=== PATIENT | female | born 1945 | race Caucasian/White ===

== ENCOUNTER → 2017-02-28 | Outpatient (CLI) | payer MEDICARE, OTHER ==
[~2017-02-28] MED LIST: ASPI-99 PO; BIOT10004 PO; FISH120014 PO; FURO80TA3 PO; INSU100V2 SQ; INSU100V3 SC; LOSA50TA PO; METF1000 PO; METO50CR PO; POTA-243 PO; PROC60TA PO; SIMV10 PO; TAB-TAB PO; VITA100017 PO; VITA400C70 PO; ZETI10TA5 PO
--- NOTE | 2017-03-06 11:39 | RSPPFT ---
DATE OF PROCEDURE: 02/28/17 COMMENTS: VOLUMES DYNAMIC: FVC mildly reduced; FEV1 moderately reduced. STATIC: FRC, RV and TLC normal. FLOWS: FEV1% mildly reduce; FEF 25-75 severely reduced. DIFFUSION; Normal. FLOW VOLUME LOOP: Pattern of variable intrathoracic airways obstruction. IMPRESSION: Mild to moderate obstructive ventilatory defect with no reduction in diffusion and no significant improvement post-bronchodilator.
== END ==
LOC: HRSP 11:17
PROVIDERS: ATTEND Internal Medicine
DX: J44.9 Chronic obstructive pulmonary disease, unspecified (principal)
CPT/HCPCS: 36600; 82805; 94060; 94620; 94726; 94729